=== PATIENT | female | born 2000 | race Caucasian/White ===

== ENCOUNTER 2022-04-02 00:41 | Emergency (ER) | payer SELFPAY ==
[~2022-04-02] VITALS: Ht 160 cm; Wt 61.2 kg
[2022-04-02 00:42] VITALS: BP 116/64
[2022-04-02] MEDS ORDERED: GNP28TAB2 PO (00:48)
[2022-04-02] MEDS ORDERED: OMEP1CAP73 PO (00:48)
== END 2022-04-02 02:11 | disposition left against medical advice (07) ==
LOC: M ED 00:41
DX: Z53.21 Procedure and treatment not carried out due to patient leaving prior to being seen by health care provider (principal)

== ENCOUNTER 2022-04-03 18:17 | Emergency (ER) | payer BC ==
[~2022-04-03] VITALS: Ht 157.5 cm; Wt 60.9 kg
[2022-04-04 00:16] LABS: HEMATOCRIT 35.4 % (36.0-47.0); HEMOGLOBIN 11.9 g/dl (12.0-15.5); MEAN CORPUSCULAR HEMOGLOBIN 30.5 pg (27.0-33.0); MEAN CORPUSCULAR HGB CONC 33.6 g/dl (32.0-36.5); MEAN CORPUSCULAR VOLUME 90.8 fl (80.0-96.0); PLATELET COUNT, AUTOMATED 256 10^3/uL (150-450); WHITE BLOOD COUNT 10.6 10^3/uL (4.0-10.0)
[2022-04-04 02:00] VITALS: BP 112/56
== END 2022-04-04 02:43 | disposition home or self-care (01) ==
LOC: M ED 18:17
DX: O03.4 Incomplete spontaneous abortion without complication (principal); K21.9 Gastro-esophageal reflux disease without esophagitis; Z79.899 Other long term (current) drug therapy

== ENCOUNTER → 2022-04-03 | Outpatient (CLI) | payer BC ==
[~2022-04-03] MED LIST: GNP28TAB2 PO; OMEP1CAP73 PO
== END ==
LOC: M WHC 15:02
PROVIDERS: ATTEND Student in an Organized Health Care Education/Training Program
DX: O26.859 Spotting complicating pregnancy, unspecified trimester (principal)